=== PATIENT | male | born 1985 | race American Indian/Alaskan Native ===

== ENCOUNTER 2016-09-28 19:46 | Emergency (ER) | payer SELFPAY ==
[2016-09-28] MEDS ORDERED: FUL-GLO OP ONE (22:22)
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
[2016-09-29 00:54] VITALS: BP 117/67
== END 2016-09-29 00:20 | disposition home or self-care (01) ==
LOC: ED 19:46
DX: R51 Headache (principal); H57.12 Ocular pain, left eye; F17.200 Nicotine dependence, unspecified, uncomplicated; H10.32 Unspecified acute conjunctivitis, left eye; Y00.XXXA Assault by blunt object, initial encounter; Y93.89 Activity, other specified; Y99.8 Other external cause status; Y92.89 Other specified places as the place of occurrence of the external cause
CPT/HCPCS: 70450

== ENCOUNTER 2016-10-15 17:19 | Emergency (ER) | payer SELFPAY ==
[2016-10-15 18:11] LABS: Basophils % (Auto) 0.6 % (0.0-1.8); Eosinophils % (Auto) 2.3 % (0.0-4.3); Hematocrit 43.9 % (35.5-45.6); Hemoglobin 14.5 gm/dl (11.8-15.2); Mean Corpuscular HGB Conc 33 % (32-34); Mean Corpuscular Hemoglobin 28 pg (28-32); Mean Corpuscular Volume 85 fl (84-94); Platelet Count 229 K/mm3 (140-440); Red Blood Count 5.16 M/mm3 (3.65-5.03); Red Cell Distribution Width 13.7 % (13.2-15.2); White Blood Count 11.2 K/mm3 (4.5-11.0)
[2016-10-15 18:32] LABS: Alanine Aminotransferase 17 units/L (7-56); Albumin 3.5 g/dL (3.9-5); Albumin/Globulin Ratio 1.1 %; Alkaline Phosphatase 76 units/L (35-129); Anion Gap 14 mmol/L; BUN/Creatinine Ratio 11.42; Blood Urea Nitrogen 8 mg/dL (9-20); Calcium 8.8 mg/dL (8.4-10.2); Carbon Dioxide 27 mmol/L (22-30); Chloride 102.4 mmol/L (98-107); Glucose 114 mg/dL (75-100); Potassium 3.9 mmol/L (3.6-5.0); Sodium 139 mmol/L (137-145); Total Protein 6.8 g/dL (6.3-8.2)
[2016-10-15] MEDS ORDERED: NORCO 5/325 PO ONE (21:13)
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
[2016-10-15] MEDS ORDERED: LOVENOX SUB-Q ONE (23:11)
[2016-10-15 23:54] VITALS: BP 138/76
== END 2016-10-15 23:45 | disposition home or self-care (01) ==
LOC: ED 17:19
DX: M79.621 Pain in right upper arm (principal); F17.200 Nicotine dependence, unspecified, uncomplicated
CPT/HCPCS: 36415; 80053; 82550; 85025; 85379; 96372; 99284; J1650

== ENCOUNTER 2016-10-16 11:44 | Emergency (ER) | payer SELFPAY | END 2016-10-16 12:00 | disposition home or self-care (01) | LOC: ED 11:44 | DX: Z53.21 Procedure and treatment not carried out due to patient leaving prior to being seen by health care provider (principal) ==

== ENCOUNTER 2016-10-16 14:46 | Inpatient (IN) | payer OTHER ==
--- NOTE | 2016-10-16 15:13 | Emergency Department Report ---
ED General Adult HPI - General Chief complaint: Extremity Problem,Nontraumatic Source: patient Mode of arrival: Ambulatory Limitations: No Limitations - History of Present Illness Initial comments: Patient states that he donated plasma one month ago. Since then he's had progressive swelling and some hardness of his right arm for the last month. He presented to the emergency department yesterday and obtained blood work. A Doppler exam of his right upper extremity was positive for SVT/DVT of the right arm extending into the brachial vein. The patient denies any respiratory difficulty or chest pain whatsoever. He has no other complaints. -: month(s) Location: right, upper extremity Radiation: non-radiation Improves with: none Worsens with: none Associated Symptoms: denies other symptoms Treatments Prior to Arrival: none - Related Data Home Medications Medication Instructions Recorded Confirmed Last Taken No Known Home Medications [No 10/16/16 10/16/16 Unknown Reported Home Medications] Allergies Allergy/AdvReac Type Severity Reaction Status Date / Time No Known Allergies Allergy Verified 11/29/13 11:41 ED Review of Systems ROS: Stated complaint: Other details as noted in HPI Constitutional: denies: chills, fever Eyes: denies: eye pain, eye discharge, vision change ENT: denies: ear pain, throat pain Respiratory: denies: cough, shortness of breath, wheezing Cardiovascular: denies: chest pain, palpitations Endocrine: no symptoms reported Gastrointestinal: denies: abdominal pain, nausea, diarrhea Genitourinary: denies: urgency, dysuria Musculoskeletal: as per HPI. denies: back pain, joint swelling, arthralgia Skin: denies: rash, lesions Neurological: denies: headache, weakness, paresthesias Psychiatric: denies: anxiety, depression Hematological/Lymphatic: denies: easy bleeding, easy bruising ED Past Medical Hx - Past Medical History Previous Medical History?: No - Surgical History Past Surgical History?: No - Social History Smoking Status: Current Every Day Smoker Substance Use Type: None - Medications Home Medications: Home Medications Medication Instructions Recorded Confirmed Last Taken Type No Known Home Medications [No 10/16/16 10/16/16 Unknown History Reported Home Medications] ED Physical Exam - General Limitations: No Limitations General appearance: alert, in no apparent distress - Head Head exam: Present: atraumatic, normocephalic - Eye Eye exam: Present: normal appearance. Absent: scleral icterus - ENT ENT exam: Present: normal exam, mucous membranes moist - Neck Neck exam: Present: normal inspection. Absent: tenderness, meningismus - Respiratory Respiratory exam: Present: normal lung sounds bilaterally. Absent: respiratory distress - Cardiovascular Cardiovascular Exam: Present: regular rate, normal rhythm. Absent: systolic murmur, diastolic murmur, rubs, gallop - GI/Abdominal GI/Abdominal exam: Present: soft, normal bowel sounds. Absent: distended, tenderness, guarding, rebound, rigid - Rectal Rectal exam: Present: deferred - Extremities Exam Extremities exam: Present: other (patient has very long palpable cord in his right arm extending into his axillary area. The arm itself is significantly swollen. Neurovascular exam is intact.) - Back Exam Back exam: Present: normal inspection - Neurological Exam Neurological exam: Present: alert, oriented X3, CN II-XII intact. Absent: motor sensory deficit - Psychiatric Psychiatric exam: Present: normal affect, normal mood - Skin Skin exam: Present: warm, dry, intact, normal color. Absent: rash ED Course Vital Signs 10/16/16 15:03 Temperature 98.1 F Pulse Rate 68 Respiratory 16 Rate Blood Pressure 124/79 O2 Sat by Pulse 99 Oximetry - Reevaluation(s) Reevaluation #1: Patient had blood work yesterday. He is referred to Dr. Frankel the hospitalist further care and evaluation. Do not know if he is eligible for outpatient treatment or if any further workup is desired by the hospitalist service. He states he does not have insurance at this point. Final disposition is pending per Dr. Frankel. 10/16/16 15:20 ED Medical Decision Making - Radiology Data Radiology results: report reviewed interpreted by me: See abovesee above Critical care attestation.: If time is entered above; I have spent that time in minutes in the direct care of this critically ill patient, excluding procedure time. ED Disposition Clinical Impression: Deep vein thrombosis (DVT) of right upper extremity Qualifiers: Affected thrombotic vein of extremity: brachial Chronicity: acute Qualified Code(s): I82.621 - Acute embolism and thrombosis of deep veins of right upper extremity Disposition: OP ADMIT IP TO THIS HOSP Is pt being admited?: Yes Does the pt Need Aspirin: No Condition: Stable Referrals: PRIMARY CARE, [Primary Care Provider] - 3-5 Days Time of Disposition: 15:21
--- NOTE | 2016-10-16 15:35 | Admit Criteria Form ---
Admission Criteria Documentation: DEEP VENOUS THROMBOSIS OF LOWER EXTREMITIES Clinical Indications for Admission to Inpatient Care ( Place 'X' for any and all applicable criteria): Admission is indicated for ANY ONE of the following (1)(2)(3)(4): [ ]I. Documented extensive thrombosis (e.g., clot in vena cava or above iliofemoral bifurcation) [ ]II. Limb-threatening thrombosis (e.g., phlegmasia cerulea dolens) [ ]III. Active bleeding [ ]IV. Recent surgery (e.g., within 6 weeks) [ ]V. Active peptic ulcer disease [ ]. Thrombosis while on anticoagulation [ ]VII. [X ]VIII. Appropriate monitoring and therapy cannot be provided in home or outpatient setting [ ]IX. Thrombolysis (e.g., catheter-directed) or pharmaco mechanical thrombectomy needed (3) [ ]X. Vena cava filter placement planned (3) [ ]XI. Severely diminished cardiopulmonary reserve (e.g., pulmonary hypertension) [ ]XII. Severe renal failure (e.g., GFR less than 30 mL/min/1.73m2 (0.5 mL/sec /1.73m2)) [ ]XIII. Known clotting abnormality or deficiency (antithrombin III, protein C , or protein S) [ ]XIV. History of heparin-induced thrombocytopenia [ ]XV . Personal or family history of bleeding tendency or familial bleeding disorder that requires inpatient admission rather than observation care (Also use Deep Venous Thrombosis of Lower Extremities: Observation Care as appropriate) because of ANY ONE of the following: [ ]a) Significant allergic, autoimmune (thrombocytopenia), or coagulopathic reaction occurs in response to anticoagulation [ ]b) Other significant finding or clinical condition judged not to be within the scope of observation care Extended stay beyond goal length of stay may be needed for(1)(19): [ ]a) Hemorrhage or recent surgery(3) [ ]b) Inadequate oral anticoagulation [ ]c) Recurrent thromboembolism(3) [ ]d) Heparin-induced thrombocytopenia(14) [facility] content [facility] by [facility] has been revised. The portions of the content which have been revised are identified through the use of italic text or in bold, and [facility] has neither reviewed nor approved the modified material. All other unmodified content is copyright [facility]. Please see references footnoted in the original [facility] edition 2016 Admission Criteria Met: Yes
[2016-10-16] MEDS ORDERED: NORCO 5/325 PO ONE (19:53)
[2016-10-16] MEDS ORDERED: DULCOLAX PR PRN (20:22)
[2016-10-16] MEDS ORDERED: TYLENOL PO PRN (20:22)
[2016-10-16] MEDS ORDERED: AMBIEN PO PRN (20:22)
[2016-10-16] MEDS ORDERED: MILK OF MAGNESIA PO PRN (20:22)
--- NOTE | 2016-10-16 20:33 | History and Physical Report ---
History of Present Illness Date of examination: 10/16/16 Date of admission: 10/16/16 Chief complaint: RUE Swelling for 1 week History of present illness: PALA: Patient states that he donated plasma one month ago. Since then he's had progressive swelling and some hardness of his right arm for the last month. He presented to the emergency department yesterday and obtained blood work. A Doppler exam of his right upper extremity was positive for SVT/DVT of the right arm extending into the brachial vein. The patient denies any respiratory difficulty or chest pain whatsoever. He has no other complaints. -: month(s) Location: right, upper extremity Radiation: non-radiation Improves with: none Worsens with: none Associated Symptoms: denies other symptoms Treatments Prior to Arrival: none - Related Data Home Medications Medication Instructions Recorded Confirmed Last Taken No Known Home Medications [No 10/16/16 10/16/16 Unknown Reported Home Medications] Allergies Allergy/AdvReac Type Severity Reaction Status Date / Time No Known Allergies Allergy Verified 11/29/13 11:41 Review of Systems ROS: Stated complaint: Other details as noted in HPI Constitutional: denies: chills, fever Eyes: denies: eye pain, eye discharge, vision change ENT: denies: ear pain, throat pain Respiratory: denies: cough, shortness of breath, wheezing Cardiovascular: denies: chest pain, palpitations Endocrine: no symptoms reported Gastrointestinal: denies: abdominal pain, nausea, diarrhea Genitourinary: denies: urgency, dysuria Musculoskeletal: as per HPI. denies: back pain, joint swelling, arthralgia Skin: denies: rash, lesions Neurological: denies: headache, weakness, paresthesias Psychiatric: denies: anxiety, depression Hematological/Lymphatic: denies: easy bleeding, easy bruising Past Medical Hx - Past Medical History Previous Medical History?: No - Surgical History Past Surgical History?: No - Social History Smoking Status: Current Every Day Smoker Substance Use Type: None Fam Hx Htn - Medications Home Medications: Home Medications Medication Instructions Recorded Confirmed Last Taken Type No Known Home Medications [No 10/16/16 10/16/16 Unknown History Reported Home Medications] Medications and Allergies Allergies Allergy/AdvReac Type Severity Reaction Status Date / Time No Known Allergies Allergy Verified 11/29/13 11:41 Home Medications Medication Instructions Recorded Confirmed Last Taken Type No Known Home Medications [No 10/16/16 10/16/16 Unknown History Reported Home Medications] Active Meds: Active Medications Acetaminophen (Tylenol) 650 mg PO Q4H PRN PRN Reason: Pain MILD(1-3)/Fever >100.5/YANG Bisacodyl (Dulcolax) 10 mg [place] QDAY PRN PRN Reason: Constipation unrelieved by MOM Enoxaparin Sodium (Lovenox) 80 mg SUB-Q Q12H BROOKS Hydromorphone HCl (Dilaudid) 1 mg IV Q3H PRN PRN Reason: Pain , Severe (7-10) Magnesium Hydroxide (Milk Of Magnesia) 30 ml PO Q4H PRN PRN Reason: Constipation Ondansetron HCl (Zofran) 4 mg IV Q8H PRN PRN Reason: N/V unrelieved by Reglan Oxycodone/Acetaminophen (Percocet 5/325) 1 tab PO Q6H PRN PRN Reason: Pain, Moderate (4-6) Rivaroxaban (Xarelto) 15 mg PO BIDDIAB [facility] PRN Reason: Protocol Zolpidem Tartrate (Ambien) 5 mg PO QHS PRN PRN Reason: Insomnia Exam - Constitutional Vitals: Temp Pulse Resp BP Pulse Ox 98.1 F 68 18 124/79 99 10/16/16 15:03 10/16/16 15:03 10/16/16 20:10 10/16/16 15:03 10/16/16 16:07 General appearance: Present: no acute distress, well-nourished - EENT Eyes: Present: PERRL ENT: hearing intact, clear oral mucosa - Neck Neck: Present: supple, normal ROM - Respiratory Respiratory effort: normal Respiratory: bilateral: CTA - Cardiovascular Heart rate: 70 Rhythm: regular Heart Sounds: Present: S1 & S2. Absent: rub, click - Extremities Extremities: pulses symmetrical, No edema Extremity abnormal: other (RUE swelling +++from shoulder to forearm.) Peripheral Pulses: within normal limits - Abdominal General gastrointestinal: Present: soft, non-tender, non-distended, normal bowel sounds Male genitourinary: Present: normal - Integumentary Integumentary: Present: clear, warm, dry - Musculoskeletal Musculoskeletal: gait normal, strength equal bilaterally - Psychiatric Psychiatric: appropriate mood/affect, intact judgment & insight - Neurologic Neurologic: CNII-XII intact, moves all extremities Results - Labs CBC & Chem 7: 10/16/16 20:28 10/17/16 00:02 - Imaging and Cardiology Venous US: report reviewed (RT Basilic vein SVT extending into segment of Brachial vein.) Assessment and Plan Advance Directives: Yes (Full code) VTE prophylaxis?: Chemical Plan of care discussed with patient/family: Yes - Patient Problems (1) Deep vein thrombosis (DVT) of right upper extremity Current Visit: Yes Status: Acute Qualifiers: Affected thrombotic vein of extremity: brachial Chronicity: acute Qualified Code(s): I82.621 - Acute embolism and thrombosis of deep veins of right upper extremity Plan to address problem: Lovenox and Xarelto 15 mg po Bid initiated.!5 mg po Bid for 21 days followed by 20 mg po qd for 6 to 9 mths.The question of affordability to be considered.May have tro initiate on Warfarin b/c of affordability. (2) Discharge planning issues Current Visit: Yes Status: Acute
[2016-10-16 20:37] LABS: Basophils % (Auto) 0.4 % (0.0-1.8); Eosinophils % (Auto) 3.3 % (0.0-4.3); Hematocrit 42.4 % (35.5-45.6); Hemoglobin 14.1 gm/dl (11.8-15.2); Mean Corpuscular HGB Conc 33 % (32-34); Mean Corpuscular Hemoglobin 29 pg (28-32); Mean Corpuscular Volume 86 fl (84-94); Platelet Count 222 K/mm3 (140-440); Red Blood Count 4.91 M/mm3 (3.65-5.03); White Blood Count 7.9 K/mm3 (4.5-11.0)
[2016-10-17 01:01] LABS: Alanine Aminotransferase 13 units/L (7-56); Albumin 3.3 g/dL (3.9-5); Albumin/Globulin Ratio 1.3 %; Alkaline Phosphatase 80 units/L (35-129); Anion Gap 17 mmol/L; BUN/Creatinine Ratio 12.85; Blood Urea Nitrogen 9 mg/dL (9-20); Calcium 8.5 mg/dL (8.4-10.2); Carbon Dioxide 26 mmol/L (22-30); Chloride 100.8 mmol/L (98-107); Glucose 103 mg/dL (75-100); Potassium 4.3 mmol/L (3.6-5.0); Sodium 139 mmol/L (137-145); Total Protein 5.9 g/dL (6.3-8.2)
[2016-10-17] MEDS: LOVENOX SUB-Q SCH ×2 (03:45→11:31)
[2016-10-17] MEDS: DILAUDID IV PRN ×5 (05:32→23:53)
[2016-10-17 05:44] LABS: Basophils % (Auto) 0.6 % (0.0-1.8); Eosinophils % (Auto) 3.2 % (0.0-4.3); Hematocrit 44.2 % (35.5-45.6); Hemoglobin 14.5 gm/dl (11.8-15.2); Mean Corpuscular HGB Conc 33 % (32-34); Mean Corpuscular Hemoglobin 28 pg (28-32); Mean Corpuscular Volume 86 fl (84-94); Platelet Count 223 K/mm3 (140-440); Red Blood Count 5.13 M/mm3 (3.65-5.03); Red Cell Distribution Width 13.8 % (13.2-15.2); White Blood Count 7.3 K/mm3 (4.5-11.0)
[2016-10-17 05:57] LABS: Alanine Aminotransferase 12 units/L (7-56); Albumin 3.3 g/dL (3.9-5); Albumin/Globulin Ratio 1.3 %; Alkaline Phosphatase 74 units/L (35-129); Anion Gap 18 mmol/L; BUN/Creatinine Ratio 11.42; Bilirubin,Total < 0.20 mg/dL (0.1-1.2); Blood Urea Nitrogen 8 mg/dL (9-20); Calcium 8.5 mg/dL (8.4-10.2); Carbon Dioxide 24 mmol/L (22-30); Chloride 101.5 mmol/L (98-107); Glucose 93 mg/dL (75-100); Potassium 4.1 mmol/L (3.6-5.0); Sodium 139 mmol/L (137-145); Total Protein 5.8 g/dL (6.3-8.2)
[2016-10-17] MEDS: XARELTO PO SCH ×2 (08:06→16:00)
[2016-10-17] MEDS: PERCOCET 5/325 PO PRN ×2 (11:30→17:24)
--- NOTE | 2016-10-17 14:04 | Progress Note ---
Assessment and Plan Assessment and plan: Acute SVT right upper extremity as per Radiology notes. Awaiting final official report to determine whether has DVT. Patient started on anticoagulation in mean time. Full code status History Interval history: Less pain on right upper extremity, no chest pain Hospitalist Physical - Physical exam Narrative exam: Gen Appearance: No acute distress, HEENT: normocephalic, atraumatic Neck: supple, no JVD Lungs: clear to auscultation bilaterally, no crackles or wheezes Heart: S1 and S2 regular, no murmurs or gallop Abdomen: Soft, non-tender, non-distended, normal bowel sounds Extremity: edema, tender right upper extremity Neuro : Awake alert oriented 3, no focal neurological signs Psych :normal mood, calm - Constitutional Vitals: Temp Pulse Resp BP Pulse Ox 97.8 F 76 20 120/77 95 10/17/16 07:00 10/17/16 07:00 10/17/16 07:00 10/17/16 07:00 10/17/16 07:00 General appearance: Present: no acute distress, well-nourished Results - Labs CBC & Chem 7: 10/17/16 03:47 10/17/16 03:47 Labs: Laboratory Last Values WBC 7.3 K/mm3 (4.5-11.0) 10/17/16 03:47 RBC 5.13 M/mm3 (3.65-5.03) H 10/17/16 03:47 Hgb 14.5 gm/dl (11.8-15.2) 10/17/16 03:47 Hct 44.2 % (35.5-45.6) 10/17/16 03:47 MCV 86 fl (84-94) 10/17/16 03:47 MCH 28 pg (28-32) 10/17/16 03:47 MCHC 33 % (32-34) 10/17/16 03:47 RDW 13.8 % (13.2-15.2) 10/17/16 03:47 Plt Count 223 K/mm3 (140-440) 10/17/16 03:47 Lymph % (Auto) 41.8 % (13.4-35.0) H 10/17/16 03:47 [place] % (Auto) 11.3 % (0.0-7.3) H 10/17/16 03:47 Eos % (Auto) 3.2 % (0.0-4.3) 10/17/16 03:47 Baso % (Auto) 0.6 % (0.0-1.8) 10/17/16 03:47 Lymph # 3.0 K/mm3 (1.2-5.4) 10/17/16 03:47 [place] # 0.8 K/mm3 (0.0-0.8) 10/17/16 03:47 Eos # 0.2 K/mm3 (0.0-0.4) 10/17/16 03:47 Baso # 0.0 K/mm3 (0.0-0.1) 10/17/16 03:47 Seg Neutrophils % 43.1 % (40.0-70.0) 10/17/16 03:47 Seg Neutrophils # 3.1 K/mm3 (1.8-7.7) 10/17/16 03:47 Sodium 139 mmol/L (137-145) 10/17/16 03:47 Potassium 4.1 mmol/L (3.6-5.0) 10/17/16 03:47 Chloride 101.5 mmol/L (98-107) 10/17/16 03:47 Carbon Dioxide 24 mmol/L (22-30) 10/17/16 03:47 Anion Gap 18 mmol/L 10/17/16 03:47 BUN 8 mg/dL (9-20) L 10/17/16 03:47 Creatinine 0.7 mg/dL (0.8-1.5) L 10/17/16 03:47 Estimated GFR > 60 ml/min 10/17/16 03:47 BUN/Creatinine Ratio 11.42 % 10/17/16 03:47 Glucose 93 mg/dL (75-100) 10/17/16 03:47 Calcium 8.5 mg/dL (8.4-10.2) 10/17/16 03:47 Total Bilirubin < 0.20 mg/dL (0.1-1.2) 10/17/16 03:47 AST 15 units/L (5-40) 10/17/16 03:47 ALT 12 units/L (7-56) 10/17/16 03:47 Alkaline Phosphatase 74 units/L (35-129) 10/17/16 03:47 Total Protein 5.8 g/dL (6.3-8.2) L 10/17/16 03:47 Albumin 3.3 g/dL (3.9-5) L 10/17/16 03:47 Albumin/Globulin Ratio 1.3 % 10/17/16 03:47
--- NOTE | 2016-10-17 16:03 | Hem/Onc Consultation ---
History of Present Illness - Reason for Consult Consult date: 10/17/16 RUE DVT - History of Present Illness Mr Tracy is a 31 yom who presents with RUE pain and swelling for several weeks. He states he donated plasma 6 weeks ago. 2 weeks later he developed pain and swelling which has gotten progressively worse until now. No other personal history of clot. He does smoke, denies testosterone use. 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 No recent surgeries, immobilizations, long travel. His mother has a history of blood clots. RUE US reportedly positive for thrombus in brachial vein and superficial clot, report pending. Past History Past Medical History: No medical history Past Surgical History: No surgical history Social history: smoking Family history: other (mother- blood clots) Medications and Allergies Allergies Allergy/AdvReac Type Severity Reaction Status Date / Time No Known Allergies Allergy Verified 11/29/13 11:41 Home Medications Medication Instructions Recorded Confirmed Last Taken Type No Known Home Medications [No 10/16/16 10/16/16 Unknown History Reported Home Medications] Active Meds: Active Medications Acetaminophen (Tylenol) 650 mg PO Q4H PRN PRN Reason: Pain MILD(1-3)/Fever >100.5/YANG Bisacodyl (Dulcolax) 10 mg [place] QDAY PRN PRN Reason: Constipation unrelieved by MOM Hydromorphone HCl (Dilaudid) 1 mg IV Q3H PRN PRN Reason: Pain , Severe (7-10) Last Admin: 10/17/16 15:56 Dose: 1 mg Magnesium Hydroxide (Milk Of Magnesia) 30 ml PO Q4H PRN PRN Reason: Constipation Ondansetron HCl (Zofran) 4 mg IV Q8H PRN PRN Reason: N/V unrelieved by Reglan Oxycodone/Acetaminophen (Percocet 5/325) 1 tab PO Q6H PRN PRN Reason: Pain, Moderate (4-6) Last Admin: 10/17/16 11:30 Dose: 1 tab Rivaroxaban (Xarelto) 15 mg PO BIDDIAB BROOKS PRN Reason: Protocol Last Admin: 10/17/16 08:06 Dose: 15 mg Zolpidem Tartrate (Ambien) 5 mg PO QHS PRN PRN Reason: Insomnia Review of Systems All systems: negative Exam - Constitutional Vitals: Last Vital Signs Temp 97.8 F 10/17/16 07:00 Pulse 76 10/17/16 07:00 Resp 20 10/17/16 07:00 BP 120/77 10/17/16 07:00 Pulse Ox 95 10/17/16 07:00 General appearance: no acute distress - Neck Neck: supple - Respiratory Respiratory effort: Positive: normal - Cardiovascular Rhythm: regular Extremities: abnormal Extremity abnormal: other (R arm with palpable cords, swelling) Results - Labs lab Results: Laboratory Results - last 24 hr 10/16/16 10/17/16 10/17/16 20:28 00:02 03:47 WBC 7.9 7.3 RBC 4.91 5.13 H Hgb 14.1 14.5 Hct 42.4 44.2 MCV 86 86 MCH 29 28 MCHC 33 33 RDW 14.0 13.8 Plt Count 222 223 Lymph % (Auto) 32.2 41.8 H [place] % (Auto) 6.9 11.3 H Eos % (Auto) 3.3 3.2 Baso % (Auto) 0.4 0.6 Lymph # 2.5 3.0 [place] # 0.5 0.8 Eos # 0.3 0.2 Baso # 0.0 0.0 Seg Neutrophils % 57.2 43.1 Seg Neutrophils # 4.5 3.1 Sodium 139 Potassium 4.3 Chloride 100.8 Carbon Dioxide 26 Anion Gap 17 BUN 9 Creatinine 0.7 L Estimated GFR > 60 BUN/Creatinine Ratio 12.85 Glucose 103 H Calcium 8.5 Total Bilirubin 0.20 AST 15 ALT 13 Alkaline Phosphatase 80 Total Protein 5.9 L Albumin 3.3 L Albumin/Globulin Ratio 1.3 10/17/16 03:47 WBC RBC Hgb Hct MCV MCH MCHC RDW Plt Count Lymph % (Auto) [place] % (Auto) Eos % (Auto) Baso % (Auto) Lymph # [place] # Eos # Baso # Seg Neutrophils % Seg Neutrophils # Sodium 139 Potassium 4.1 Chloride 101.5 Carbon Dioxide 24 Anion Gap 18 BUN 8 L Creatinine 0.7 L Estimated GFR > 60 BUN/Creatinine Ratio 11.42 Glucose 93 Calcium 8.5 Total Bilirubin < 0.20 AST 15 ALT 12 Alkaline Phosphatase 74 Total Protein 5.8 L Albumin 3.3 L Albumin/Globulin Ratio 1.3 - Imaging and cardiology Venous US: pending Assessment and Plan RUE DVT: - will order CT to image R chest/shoulder to r/o thoracic outlet obstruction - smoking is a likely contributing factor, advise cessation - f/u with Dr Pereyra in clinic for hypercoaguable w/u and for determination of length of anticoagulation - agree with Xarelto, at least 6 months, will order LFT's
[2016-10-17] MEDS: ZOFRAN IV PRN (20:35)
[2016-10-17] MEDS ORDERED: NACL ONE (22:52)
[2016-10-18] MEDS: ZOFRAN IV PRN (05:01)
[2016-10-18] MEDS: DILAUDID IV PRN ×3 (05:02→20:34)
[2016-10-18 06:42] LABS: Alanine Aminotransferase 14 units/L (7-56); Albumin 3.3 g/dL (3.9-5); Albumin/Globulin Ratio 1.1 %; Alkaline Phosphatase 65 units/L (35-129); Anion Gap 17 mmol/L; BUN/Creatinine Ratio 8.75; Blood Urea Nitrogen 7 mg/dL (9-20); Calcium 8.7 mg/dL (8.4-10.2); Carbon Dioxide 26 mmol/L (22-30); Chloride 104.7 mmol/L (98-107); Glucose 84 mg/dL (75-100); Potassium 4.2 mmol/L (3.6-5.0); Sodium 143 mmol/L (137-145); Total Protein 6.4 g/dL (6.3-8.2)
[2016-10-18] MEDS ORDERED: NACL ONE ×2 (07:09→11:22)
--- NOTE | 2016-10-18 07:40 | Vascular Lab Report ---
RIGHT UPPER EXTREMITY VENOUS DUPLEX: REASON FOR EXAM: Pain and swelling of the right upper extremity COMMENTS ON THE RIGHT: Venous thrombosis is noted in the brachial vein. Superficial thrombosis noted in the basilic vein.. The remaining veins visualized are freely compressible without evidence of internal echogenicity. Spontaneous and phasic flow is present proximally. COMMENTS ON THE LEFT: The subclavian and internal jugular veins are free of thrombus. IMPRESSION: Deep and superficial venous thrombosis in the right upper extremity
--- NOTE | 2016-10-18 10:10 | Progress Note ---
Assessment and Plan Assessment and plan: Acute DVT right upper extremity. Patient started on anticoagulation with Xarelto. I discussed with Dr. Pereyra, [employer]. he recommends Vasc surg consult. Full code status History Interval history: Less pain on right upper extremity, swelling right upper ext no chest pain Hospitalist Physical - Physical exam Narrative exam: Gen Appearance: No acute distress, HEENT: normocephalic, atraumatic Neck: supple, no JVD Lungs: clear to auscultation bilaterally, no crackles or wheezes Heart: S1 and S2 regular, no murmurs or gallop Abdomen: Soft, non-tender, non-distended, normal bowel sounds Extremity: edema, tenderness right upper extremity Neuro : Awake alert oriented 3, no focal neurological signs Psych :normal mood, calm - Constitutional Vitals: Temp Pulse Resp BP Pulse Ox 98.6 F 65 18 105/64 95 10/18/16 08:02 10/18/16 08:02 10/18/16 08:02 10/18/16 08:02 10/18/16 08:02 General appearance: Present: no acute distress, well-nourished Results - Labs CBC & Chem 7: 10/17/16 03:47 10/18/16 05:08 Labs: Laboratory Last Values WBC 7.3 K/mm3 (4.5-11.0) 10/17/16 03:47 RBC 5.13 M/mm3 (3.65-5.03) H 10/17/16 03:47 Hgb 14.5 gm/dl (11.8-15.2) 10/17/16 03:47 Hct 44.2 % (35.5-45.6) 10/17/16 03:47 MCV 86 fl (84-94) 10/17/16 03:47 MCH 28 pg (28-32) 10/17/16 03:47 MCHC 33 % (32-34) 10/17/16 03:47 RDW 13.8 % (13.2-15.2) 10/17/16 03:47 Plt Count 223 K/mm3 (140-440) 10/17/16 03:47 Lymph % (Auto) 41.8 % (13.4-35.0) H 10/17/16 03:47 [place] % (Auto) 11.3 % (0.0-7.3) H 10/17/16 03:47 Eos % (Auto) 3.2 % (0.0-4.3) 10/17/16 03:47 Baso % (Auto) 0.6 % (0.0-1.8) 10/17/16 03:47 Lymph # 3.0 K/mm3 (1.2-5.4) 10/17/16 03:47 [place] # 0.8 K/mm3 (0.0-0.8) 10/17/16 03:47 Eos # 0.2 K/mm3 (0.0-0.4) 10/17/16 03:47 Baso # 0.0 K/mm3 (0.0-0.1) 10/17/16 03:47 Seg Neutrophils % 43.1 % (40.0-70.0) 10/17/16 03:47 Seg Neutrophils # 3.1 K/mm3 (1.8-7.7) 10/17/16 03:47 Sodium 143 mmol/L (137-145) 10/18/16 05:08 Potassium 4.2 mmol/L (3.6-5.0) 10/18/16 05:08 Chloride 104.7 mmol/L (98-107) 10/18/16 05:08 Carbon Dioxide 26 mmol/L (22-30) 10/18/16 05:08 Anion Gap 17 mmol/L 10/18/16 05:08 BUN 7 mg/dL (9-20) L 10/18/16 05:08 Creatinine 0.8 mg/dL (0.8-1.5) 10/18/16 05:08 Estimated GFR > 60 ml/min 10/18/16 05:08 BUN/Creatinine Ratio 8.75 % 10/18/16 05:08 Glucose 84 mg/dL (75-100) 10/18/16 05:08 Calcium 8.7 mg/dL (8.4-10.2) 10/18/16 05:08 Total Bilirubin 0.20 mg/dL (0.1-1.2) 10/18/16 05:08 AST 16 units/L (5-40) 10/18/16 05:08 ALT 14 units/L (7-56) 10/18/16 05:08 Alkaline Phosphatase 65 units/L (35-129) 10/18/16 05:08 Total Protein 6.4 g/dL (6.3-8.2) 10/18/16 05:08 Albumin 3.3 g/dL (3.9-5) L 10/18/16 05:08 Albumin/Globulin Ratio 1.1 % 10/18/16 05:08
--- NOTE | 2016-10-18 11:06 | Hem/Onc Progress Note ---
Assessment and Plan - Patient Problems (1) Deep vein thrombosis (DVT) of right upper extremity Current Visit: Yes Status: Acute Qualifiers: Affected thrombotic vein of extremity: brachial Chronicity: acute Qualified Code(s): I82.621 - Acute embolism and thrombosis of deep veins of right upper extremity Plan to address problem: He has DVt. Report pending. Stressed with him the importance of outpatient followup. He understands, card with appt given. D/w Dr Duran Subjective Date of service: 10/18/16 Interval history: He is feeling better. No new complains. Objective - Constitutional Vitals: Last Vital Signs Temp 98.6 F 10/18/16 08:02 Pulse 65 10/18/16 08:02 Resp 18 10/18/16 08:02 BP 105/64 10/18/16 08:02 Pulse Ox 95 10/18/16 08:02 - EENT ENT: hearing intact Lymph node exam: negative cervical - Neck Neck: supple - Respiratory Respiratory effort: Positive: normal Respiratory: bilateral: CTA - Cardiovascular Rhythm: regular - Labs Lab Results: Laboratory Results - last 24 hr 10/18/16 05:08 Sodium 143 Potassium 4.2 Chloride 104.7 Carbon Dioxide 26 Anion Gap 17 BUN 7 L Creatinine 0.8 Estimated GFR > 60 BUN/Creatinine Ratio 8.75 Glucose 84 Calcium 8.7 Total Bilirubin 0.20 AST 16 ALT 14 Alkaline Phosphatase 65 Total Protein 6.4 Albumin 3.3 L Albumin/Globulin Ratio 1.1
--- NOTE | 2016-10-18 12:27 | Cat Scan Report ---
CT chest with contrast: Right upper extremity DVT. Evaluate for thoracic outlet compression. During venous contrast administration via a left upper extremity transverse images are obtained through the chest with coronal and sagittal 2-D reformatted images. Contrast is present in the pulmonary vessels as well as the thoracic aorta and central venous structures. The thoracic aorta is normal in size and contour. There is good opacification of cardiac chambers show no filling defects and no lung defects identified in the pulmonary arteries. The right subclavian artery is opacified showing no compression. The right subclavian vein is not opacified but shows no evidence of compression. No adenopathy noted. The central airways are patent. Images through the lung show no obvious pulmonary nodule nor infiltrate. The pleural surfaces are smooth. Sections carried into the upper abdomen are unremarkable. Impression: No pathology identified.
[2016-10-18] MEDS: XARELTO PO SCH ×2 (16:29→16:30)
[2016-10-18] MEDS: PERCOCET 5/325 PO PRN (16:30)
--- NOTE | 2016-10-18 18:36 | Consultation ---
History of Present Illness - Reason for Consult Consult date: 10/18/16 Right Upper Extremity DVT Requesting physician: RODDY UMANZOR - History of Present Illness This patient is a 31-year-old -[place] male that was admitted on 2016 due to right upper extremity swelling with a right basilic vein thrombus extending into the brachial vein (SVT/DVT). The patient complains of right upper extremity pain (with thickening of the upper and forearm tissue) for the last month. His symptoms were not improving, and therefore he decided to go to the emergency room. He reports having donated plasma approximately 2 weeks prior to the discomfort beginning. He reportedly donates plasma monthly. He denied other trauma, prolonged periods of immobility, or other known hypercoagulable conditions. 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 He was unsure if she was placed on anticoagulation.) Medications and Allergies Allergies Allergy/AdvReac Type Severity Reaction Status Date / Time No Known Allergies Allergy Verified 11/29/13 11:41 Home Medications Medication Instructions Recorded Confirmed Last Taken Type No Known Home Medications [No 10/16/16 10/16/16 Unknown History Reported Home Medications] Active Meds: Active Medications Acetaminophen (Tylenol) 650 mg PO Q4H PRN PRN Reason: Pain MILD(1-3)/Fever >100.5/YANG Bisacodyl (Dulcolax) 10 mg [place] QDAY PRN PRN Reason: Constipation unrelieved by MOM Hydromorphone HCl (Dilaudid) 1 mg IV Q3H PRN PRN Reason: Pain , Severe (7-10) Last Admin: 10/18/16 12:21 Dose: 1 mg Magnesium Hydroxide (Milk Of Magnesia) 30 ml PO Q4H PRN PRN Reason: Constipation Ondansetron HCl (Zofran) 4 mg IV Q8H PRN PRN Reason: N/V unrelieved by Reglan Last Admin: 10/18/16 05:01 Dose: 4 mg Oxycodone/Acetaminophen (Percocet 5/325) 1 tab PO Q6H PRN PRN Reason: Pain, Moderate (4-6) Last Admin: 10/18/16 16:30 Dose: 1 tab Rivaroxaban (Xarelto) 15 mg PO BIDDIAB [facility] PRN Reason: Protocol Stop: 11/06/16 17:01 Last Admin: 10/18/16 16:30 Dose: 15 mg Rivaroxaban (Xarelto) 20 mg PO DAILY [facility] PRN Reason: Protocol Zolpidem Tartrate (Ambien) 5 mg PO QHS PRN PRN Reason: Insomnia Review of Systems All systems: negative Constitutional: no weight loss Respiratory: no cough, no hemoptysis Gastrointestinal: no change in bowel habits, no BRBPR, no melena, no hematochezia Genitourinary Male: no hematuria (patient specifically denied below findings. All other systems were reviewed and he was found have no other pertinent complaints.) Exam - Constitutional Vitals: Temp Pulse Resp BP Pulse Ox 98.6 F 65 18 105/64 95 10/18/16 08:02 10/18/16 08:02 10/18/16 08:02 10/18/16 08:02 10/18/16 08:02 General appearance: Present: no acute distress - EENT Eyes: Present: EOM intact ENT: hearing intact - Neck Neck: Present: supple - Respiratory Respiratory effort: normal - Cardiovascular Rhythm: regular - Extremities Extremities: no ischemia, normal temperature Extremity abnormal: edema (minimal appreciable swelling to the right upper extremity, he is quite tender in the medial forearm and medial bicep. No overt erythema or drainage appreciated.) - Psychiatric Psychiatric: appropriate mood/affect, intact judgment & insight, cooperative - Neurologic Neurologic: no focal deficits Results - Labs CBC & Chem 7: 10/17/16 03:47 10/18/16 05:08 Labs: Abnormal lab results 10/18/16 Range/Units 05:08 BUN 7 L (9-20) mg/dL Albumin 3.3 L (3.9-5) g/dL Assessment and Plan This patient was admitted with a basilic vein thrombus which extends into the deep system at the brachial vein. He was started on intravenous anticoagulation. The patient has been converted to Xarelto. A Hematology consult was placed who recommended continuing oral anticoagulation for at least [address] scan of the chest was ordered to rule out thoracic outlet syndrome. The subclavian vein did not opacify, but reportedly showed no evidence of compression. A vascular surgery consult has been requested to further evaluate. I had a long conversation with the patient about the condition, as well as treatment of symptoms, and anticoagulation. No indications for vascular surgical intervention at this point. He will watch for signs of bleeding. In the event that the patient developed an adverse reaction to anticoagulation, it could be held. Risk of significant pulmonary embolus from an upper extremity DVT is relatively low. Warm compresses, upper extremity elevation, and compression therapy as necessary for symptomatic relief of symptoms. Patient can follow up in our office as an outpatient as needed. Thank you for this consultation. - Patient Problems (1) Deep vein thrombosis (DVT) of right upper extremity Current Visit: Yes Status: Acute Qualifiers: Affected thrombotic vein of extremity: brachial Chronicity: acute Qualified Code(s): I82.621 - Acute embolism and thrombosis of deep veins of right upper extremity (2) Superficial venous thrombosis of right upper extremity Current Visit: Yes Status: Acute
[2016-10-19] MEDS: DILAUDID IV PRN ×2 (01:03→06:00)
[2016-10-19] MEDS: PERCOCET 5/325 PO PRN (07:45)
[2016-10-19] MEDS: XARELTO PO SCH (07:46)
--- NOTE | 2016-10-19 09:02 | Discharge Summary ---
Providers - Providers Date of Admission: 10/16/16 19:52 Date of discharge: 10/19/16 Attending physician: RODDY UMANZOR 10/17/16 07:40 Consult to Physician [CONS] Routine Consulting Provider: SAMEERA CHAVEZ Reason For Exam: DVT right upper ext Place consult to:: dr. 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 Hospitalization Condition: Good Disposition: DC-01 TO HOME OR SELFCARE - Discharge Diagnoses (1) Deep vein thrombosis (DVT) of right upper extremity Status: Acute Qualifiers: Affected thrombotic vein of extremity: brachial Chronicity: acute Qualified Code(s): I82.621 - Acute embolism and thrombosis of deep veins of right upper extremity (2) Superficial venous thrombosis of right upper extremity Status: Acute Core Measure Documentation - Palliative Care Palliative Care/ Comfort Measures: Not Applicable - Core Measures Any of the following diagnoses?: DVT/PE - VTE Discharge Requirements Deep Vein Thrombosis/Pulmonary Embolism Present on Admission: Yes Has pt received <5 days of overlap therapy or INR<2.0: Yes Anticoagulant overlap therapy prescribed at discharge: No Contraindication No Overlap Therapy order at DC: Not Indicated (On Xarelto) Exam - Constitutional Vitals: Temp Pulse Resp BP Pulse Ox 98.6 F 76 20 115/60 97 10/19/16 00:00 10/19/16 00:00 10/19/16 00:00 10/19/16 00:00 10/19/16 00:00 Plan Activity: advance as tolerated Diet: low fat, low cholesterol Additional Instructions: 1.Follow up with PCP or [facility] in 1 week. 2.Follow up with Dr. Chavez in 1 week Follow up with: PRIMARY CARE, [Primary Care Provider] - 3-5 Days Prescriptions: oxyCODONE /ACETAMINOPHEN [Percocet 5/325 mg] 1 tab PO Q6H PRN #20 tablet PRN Reason: Pain, Moderate (4-6) Rivaroxaban [Xarelto] 15 mg PO BIDDIAB 19 Days Rivaroxaban [Xarelto] 20 mg PO DAILY #30 tablet
[2016-10-19 11:15] VITALS: BP 101/72
[2016-11-07] MEDS ORDERED: XARELTO PO SCH (10:00)
== END 2016-10-19 12:45 | disposition home or self-care (01) | DRG 301 ==
LOC: EDSTATUS 14:46 → ED 14:46 → 3A 19:52
PROVIDERS: ADMIT Internal Medicine; ATTEND Internal Medicine
DX: I82.621 Acute embolism and thrombosis of deep veins of right upper extremity (principal); I82.611 Acute embolism and thrombosis of superficial veins of right upper extremity; F17.200 Nicotine dependence, unspecified, uncomplicated; Z83.2 Family history of diseases of the blood and blood-forming organs and certain disorders involving the immune mechanism; Z80.9 Family history of malignant neoplasm, unspecified
CPT/HCPCS: 36415; 71260; 80053; 85025; 99285; J1170; J1650; J2405; Q9967

== ENCOUNTER 2016-10-31 08:52 | Emergency (ER) | payer SELFPAY ==
[2016-10-31 09:54] LABS: Basophils % (Auto) 0.8 % (0.0-1.8); Eosinophils % (Auto) 1.7 % (0.0-4.3); Hematocrit 44.8 % (35.5-45.6); Mean Corpuscular HGB Conc 34 % (32-34); Mean Corpuscular Hemoglobin 29 pg (28-32); Mean Corpuscular Volume 85 fl (84-94); Platelet Count 276 K/mm3 (140-440); Red Blood Count 5.24 M/mm3 (3.65-5.03); Red Cell Distribution Width 13.5 % (13.2-15.2)
[2016-10-31 09:58] LABS: Alanine Aminotransferase 19 units/L (7-56); Albumin 3.9 g/dL (3.9-5); Albumin/Globulin Ratio 1.3 %; Alkaline Phosphatase 63 units/L (35-129); Anion Gap 15 mmol/L; BUN/Creatinine Ratio 7.77; Blood Urea Nitrogen 7 mg/dL (9-20); Calcium 8.9 mg/dL (8.4-10.2); Carbon Dioxide 28 mmol/L (22-30); Chloride 103.8 mmol/L (98-107); Glucose 83 mg/dL (75-100); Potassium 4.7 mmol/L (3.6-5.0); Sodium 142 mmol/L (137-145); Total Protein 6.8 g/dL (6.3-8.2)
[2016-10-31 10:02] LABS: INR 1.17 (0.87-1.13); Partial Thromboplastin Time 24.1 Sec. (24.2-36.6)
[2016-10-31] MEDS ORDERED: LOVENOX SUB-Q ONE (16:30)
--- NOTE | 2016-10-31 16:35 | Emergency Department Report ---
HPI - General Chief Complaint: Extremity Injury, Upper Time Seen by Provider: 10/31/16 16:28 - HPI HPI: Chief complaint right arm pain This is 31-year-old -Citizen Of The [place] male with history of DVT in the right arm. 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 Was diagnosed with a DVT couple weeks ago. He subsequently had long hospital stay and was discharged on Zaroxolyn and oxycodone. Patient stated that he has been moving and lost both prescriptions. Complaining of pain in the right arm. No nausea no vomiting no chest pain or shortness of breath. ED Past Medical Hx - Past Medical History Previous Medical History?: Yes Hx Deep Vein Thrombosis: Yes Additional medical history: Right arm DVT - Surgical History Past Surgical History?: No - Social History Smoking Status: Current Every Day Smoker Substance Use Type: Alcohol, Prescribed - Medications Home Medications: Home Medications Medication Instructions Recorded Confirmed Last Taken Type Rivaroxaban [Xarelto] 15 mg PO BIDDIAB 19 Days 10/19/16 Unknown Rx oxyCODONE /ACETAMINOPHEN [Percocet 1 tab PO Q6H PRN #20 tablet 10/19/16 Unknown Rx 5/325 mg] Rivaroxaban [Xarelto] 20 mg PO DAILY #30 tablet 10/31/16 Unknown Rx traMADol [Ultram] 50 mg PO Q4HR PRN #20 tablet 10/31/16 Unknown Rx ED Review of Systems ROS: Stated complaint: RT ARM PAIN Other details as noted in HPI Comment: All other systems reviewed and negative Musculoskeletal: myalgia, other (right arm pain, no swelling) Physical Exam - Physical Exam Vital Signs: Vital Signs 10/31/16 10/31/16 09:00 12:31 Temperature 98.1 F 98.2 F Pulse Rate 85 59 L Respiratory 18 18 Rate Blood Pressure 126/81 Blood Pressure 130/91 [Right] O2 Sat by Pulse 96 100 Oximetry Physical Exam: Vital signs reviewed Gen. alert and oriented 3 in no distress Head atraumatic normocephalic Eyes PERR LA EOMI Chest regular rate and rhythm normal S1-S2 lungs clear bilaterally Abdomen soft nondistended Back no point tenderness paravertebral tenderness Neuro no focal deficit. Psych normal mood. Extremity right arm tenderness. No neck swelling. ED Course Vital Signs 10/31/16 10/31/16 09:00 12:31 Temperature 98.1 F 98.2 F Pulse Rate 85 59 L Respiratory 18 18 Rate Blood Pressure 126/81 Blood Pressure 130/91 [Right] O2 Sat by Pulse 96 100 Oximetry - Reevaluation(s) Reevaluation #1: 10/31/16 16:33 Patient refuses admission to [facility]. Said he was in the hospital for one week and missed work. And he has to go back to work. We'll treat with Lovenox IM 1. Repeat xarelto 20 mg daily. We'll provide short course of hydrocodone for pain. She had advised return the ED with chest pain shortness of breath arm swelling. ED Medical Decision Making - Lab Data Result diagrams: 10/31/16 09:31 10/31/16 09:31 Critical care attestation.: If time is entered above; I have spent that time in minutes in the direct care of this critically ill patient, excluding procedure time. ED Disposition Clinical Impression: Deep vein thrombosis (DVT) of right upper extremity Disposition: DC-01 TO HOME OR SELFCARE Is pt being admited?: No Does the pt Need Aspirin: No Condition: Stable Instructions: Deep Venous Thrombosis (ED) Prescriptions: Rivaroxaban [Xarelto] 20 mg PO DAILY #30 tablet traMADol [Ultram] 50 mg PO Q4HR PRN #20 tablet PRN Reason: Pain Referrals: PRIMARY CARE, [Primary Care Provider] - 3-5 Days
[2016-10-31 16:50] VITALS: BP 118/68
--- NOTE | 2016-11-01 07:51 | Vascular Lab Report ---
RIGHT UPPER EXTREMITY VENOUS DUPLEX: REASON FOR EXAM: Pain of the right upper extremity COMMENTS ON THE RIGHT: Acute deep venous thrombosis noted in the brachial vein. Superficial thrombophlebitis noted in the forearm basilic vein extending into the arm just above the elbow. The remaining veins visualized are freely compressible without evidence of internal echogenicity. Spontaneous and phasic flow is present proximally. COMMENTS ON THE LEFT: The subclavian and internal jugular veins are free of thrombus. IMPRESSION: Acute deep and superficial venous thrombosis in the right upper extremity
== END 2016-10-31 16:51 | disposition home or self-care (01) ==
LOC: ED 08:52
DX: I82.621 Acute embolism and thrombosis of deep veins of right upper extremity (principal); F17.210 Nicotine dependence, cigarettes, uncomplicated
CPT/HCPCS: 36415; 80053; 85025; 85610; 85730; 93971; 96372; 99284; J1650

== ENCOUNTER 2016-11-23 09:04 | Emergency (ER) | payer SELFPAY ==
[2016-11-23 09:20] VITALS: BP 122/88
--- NOTE | 2016-11-23 16:42 | Vascular Lab Report ---
RIGHT UPPER EXTREMITY VENOUS DUPLEX: REASON FOR EXAM: pain inn the right arm. COMMENTS ON THE RIGHT: DVT of one right brachial vein. A CT of basilic vein from biceps to mid forearm. The remaining veins visualized are freely compressible without evidence of internal echogenicity. Spontaneous and phasic flow is absent proximally. COMMENTS ON THE LEFT: The subclavian and internal jugular veins are free of thrombus. IMPRESSION: DVT of right brachial vein and superficial venous phlebitis of basilic vein from the biceps to mid forearm
== END 2016-11-23 09:30 | disposition left against medical advice (07) ==
LOC: ED 09:04
DX: M79.89 Other specified soft tissue disorders (principal); Z53.21 Procedure and treatment not carried out due to patient leaving prior to being seen by health care provider

== ENCOUNTER 2017-01-03 15:24 | Emergency (ER) | payer SELFPAY | END 2017-01-03 18:00 | disposition left against medical advice (07) | LOC: ED 15:24 | DX: M79.604 Pain in right leg (principal); Z53.21 Procedure and treatment not carried out due to patient leaving prior to being seen by health care provider ==

== ENCOUNTER 2017-08-20 21:51 | Emergency (ER) | payer SELFPAY ==
[2017-08-20 21:56] VITALS: BP 132/85
[2017-08-20 22:26] LABS: Hematocrit 40.9 % (35.5-45.6); Hemoglobin 14.4 gm/dl (11.8-15.2); Mean Corpuscular HGB Conc 35 % (32-34); Mean Corpuscular Hemoglobin 29 pg (28-32); Mean Corpuscular Volume 83 fl (84-94); Platelet Count 231 K/mm3 (140-440); Red Blood Count 4.92 M/mm3 (3.65-5.03); Red Cell Distribution Width 13.4 % (13.2-15.2)
[2017-08-20 22:32] LABS: INR 0.95 (0.87-1.13)
[2017-08-20 22:33] LABS: Partial Thromboplastin Time 24.6 Sec. (24.2-36.6)
[2017-08-20 23:08] LABS: BUN/Creatinine Ratio 15; Blood Urea Nitrogen 12 mg/dL (9-20); Calcium 8.9 mg/dL (8.4-10.2); Hemolysis Index 9
== END 2017-08-20 22:09 | disposition left against medical advice (07) ==
LOC: ED 21:51
DX: M79.601 Pain in right arm (principal); Z53.21 Procedure and treatment not carried out due to patient leaving prior to being seen by health care provider
CPT/HCPCS: 36415; 80048; 85027; 85610; 85730